=== PATIENT | female | born 1980 | race Caucasian/White ===

== ENCOUNTER 2022-11-30 16:52 | Emergency (ER) | payer OTHER ==
[~2022-11-30] VITALS: Ht 157.5 cm; Wt 65.8 kg
[2022-11-30 17:05] VITALS: BP 124/71
[2022-11-30 17:56] LABS: BASOPHILS % (AUTO) 0.3 % (0.0-2.0); EOSINOPHILS # (AUTO) 0.1 K/uL (0-0.4); EOSINOPHILS % (AUTO) 0.9 % (0.0-4.0); HEMATOCRIT 35.3 % (36-48); HEMOGLOBIN 11.6 g/dL (12.0-16.0); LYMPHOCYTES # (AUTO) 2.1 K/uL (2.5-16.5); LYMPHOCYTES % (AUTO) 23.2 % (20.5-51.1); MEAN CORPUSCULAR HEMOGLOBIN 27 pg (27-31); MEAN CORPUSCULAR HGB CONC 33 g/dL (33-37); MEAN CORPUSCULAR VOLUME 81.3 fL (80-94); MONOCYTES # (AUTO) 0.4 K/uL (0.8-1.0); NEUTROPHILS # (AUTO) 6.3 K/uL (1.8-7.7); NEUTROPHILS % (AUTO) 70.6 % (42.2-75.2); PLATELET COUNT (AUTO) 323 K/uL (140-450); RED BLOOD CELL COUNT(AUTO) 4.34 MIL/uL (4.20-5.40); RED CELL DISTRIBUTION WIDTH 15.4 % (11.6-13.7)
--- NOTE | 2022-11-30 18:10 | NUR ---
41 y/o female bib self with c/o generalized weakness and feeling like fainting x 3 days. Denies any sick contacts or new foods. Denies any fevers, chills or SOB. Patient has intermittent epigastric pain. Medical History: Gastritis NKDA
[2022-11-30 18:14] LABS: ALBUMIN 3.4 g/dL (3.4-5.0); ANION GAP 10.4 (8-16); CARBON DIOXIDE 27.8 mmol/L (21-32); CREATININE 0.6 mg/dL (0.6-1.3); POTASSIUM 4.2 mmol/L (3.5-5.1); TOTAL BILIRUBIN 0.1 mg/dL (0.0-1.0)
[2022-11-30 18:40] LABS: APPEARANCE,URINE CLEAR (CLEAR); BILIRUBIN,URINE NEGATIVE (NEGATIVE); BLOOD, URINE TRACE-I (NEGATIVE); LEUKOCYTE ESTERASE ,URINE NEGATIVE (NEGATIVE); NITRITE, URINE NEGATIVE (NEGATIVE); PH,URINE 5.5 (5.0-9.0); UGLUCOSE NEGATIVE (NEGATIVE)
[2022-11-30 18:41] LABS: COLOR,URINE STRAW (YELLOW); RBC,URINE 0-5 /HPF (0-5); WBC,URINE NONE SEEN /HPF (0-5)
--- NOTE | 2022-11-30 19:20 | NUR ---
Report given to RAMA Pizano for transfer of care.
--- NOTE | 2022-11-30 19:31 | NUR ---
Dr. Denton examining patient.
--- NOTE | 2022-11-30 19:48 | NUR ---
PT C/O ABD PAIN MID GASTRIC X3DAYS. PRESSURE LIKE PAIN 05/09. DENIES N/V. BOUTS OF DIARRHEA X3DAYS. DENIES SOB CP OR FEVER. PT IS A&OX4 RESP EVEN AND UNLABORED. SKIN IS DRY WARM AND INTACT. HOB ELEVATED BED AT LOWEST POSITION SIDE RAILS UP X2. NKDA NA
[2022-11-30] MEDS ORDERED: IBUP-2213 PO (20:05)
[2022-11-30] MEDS ORDERED: LOPE-289 PO (20:05)
--- NOTE | 2022-11-30 20:29 | NUR ---
Patient discharged with v/s stable. Written and verbal after care instructions given and explained. Patient alert, oriented and verbalized understanding of instructions. Ambulatory with steady gait. All questions addressed prior to discharge. ID band removed. Patient advised to follow up with PMD. Rx of IBUPROFEN IMODIUM given.
== END 2022-11-30 20:29 | disposition home or self-care (01) ==
LOC: MED 16:52
DX: R10.13 Epigastric pain (principal); R53.1 Weakness
CPT/HCPCS: 36415; 80053; 81001; 83690; 85025; 99283

== ENCOUNTER 2024-09-06 09:39 | Emergency (ER) | payer OTHER ==
[~2024-09-06] VITALS: Ht 157.5 cm; Wt 64.0 kg
[~2024-09-06 09:39] MED LIST: IBUP-2213 PO; LOPE-289 PO
[2024-09-06 09:43] VITALS: BP 117/64; PULSE 68; RESP 18; TEMP 97.5; O2SAT 100
[2024-09-06] MEDS: KETOROLAC 30 MG/ML VIAL IM ONE (10:57)
[2024-09-06] MEDS ORDERED: LORA1T126 PO (11:03)
[2024-09-06 11:20] VITALS: BP 117/64; PULSE 68; RESP 18; TEMP 97.5; O2SAT 100
== END 2024-09-06 11:20 | disposition home or self-care (01) ==
LOC: MED 09:39
DX: R59.1 Generalized enlarged lymph nodes (principal); H92.02 Otalgia, left ear; Z79.899 Other long term (current) drug therapy
CPT/HCPCS: 81025; 96372; 99283; J1885